=== PATIENT | female | born 1935 | race Caucasian/White ===

== ENCOUNTER → 2019-05-20 | Outpatient (CLI) | payer MEDICARE | LOC: RAD 14:07 | PROVIDERS: ATTEND Family Medicine | DX: R60.0 Localized edema (principal) | CPT/HCPCS: 93970 ==

== ENCOUNTER → 2019-07-02 | Outpatient (CLI) | payer MEDICARE ==
--- NOTE | 2019-07-02 21:09 | Diagnostic Imaging Report ---
Parathyroid Scan with SPECT Reason for exam: E21.0 Primary hyperparathyroidism. The patient has had previous total thyroidectomy. Radiopharmaceutical: Tc-99m sestamibi 27.5 mCi After intravenous administration of the radiopharmaceutical, immediate and 3-hour planar images of the neck and upper chest were obtained. Tomographic images of the neck and upper chest were obtained following the initial planar images. On the initial planar and the tomographic images, the thyroid is absent, consistent with known total thyroidectomy. A small focus of increased tracer activity is seen immediately inferior to the lower pole of the left thyroid bed. On the delayed planar images, the focus of tracer accumulation immediately inferior to the left thyroid bed is no longer seen. No other focal abnormalities are identified. Impression: Single enlarged hypermetabolic parathyroid gland is suspected immediately inferior to the left thyroid bed in this patient who is s/p total thyroidectomy. Signed by: Dr. Isirda Ramirez M.D. on 07/02/2019 9:06 PM
== END ==
LOC: NM 10:10
PROVIDERS: ATTEND Family Medicine
DX: E21.3 Hyperparathyroidism, unspecified (principal)
CPT/HCPCS: 78071; A9500

== ENCOUNTER → 2022-02-20 | Outpatient (CLI) | payer MEDICARE | LOC: NM 09:59 | PROVIDERS: ATTEND Internal Medicine Nephrology | DX: E21.0 Primary hyperparathyroidism (principal) | CPT/HCPCS: 78071; A9512 ==